=== PATIENT | female | born 1965 | race Two or more races ===

== ENCOUNTER 2020-02-11 14:06 | Emergency (ER) | payer OTHER ==
[~2020-02-11] VITALS: Ht 182.9 cm; Wt 117.9 kg
[2020-02-11] MEDS ORDERED: SALINE WOUND W210 ML TOP (16:51)
[2020-02-11] MEDS ORDERED: CLEOCIN HCL150 MG PO (16:51)
[2020-02-11] MEDS ORDERED: BETADINE30 ML TOP (16:51)
[2020-02-11] MEDS ORDERED: INTESTINEX680 M1 PO (16:51)
== END 2020-02-11 17:33 | disposition home or self-care (01) ==
LOC: ER 14:06
DX: L03.011 Cellulitis of right finger (principal); S91.341A Puncture wound with foreign body, right foot, initial encounter; W26.8XXA Contact with other sharp object(s), not elsewhere classified, initial encounter; Y93.02 Activity, running; Y92.832 Beach as the place of occurrence of the external cause; Y99.8 Other external cause status

== ENCOUNTER 2020-03-20 08:16 | Outpatient (CLI) | payer OTHER ==
[~2020-03-20 08:16] MED LIST: BETADINE30 ML TOP; CLEOCIN HCL150 MG PO; INTESTINEX680 M1 PO; SALINE WOUND W210 ML TOP
== END 2020-03-20 08:27 | disposition home or self-care (01) ==
LOC: RAD 08:16
PROVIDERS: ATTEND Family Medicine
DX: M25.761 Osteophyte, right knee (principal); M25.561 Pain in right knee